=== PATIENT | female | born 1955 | race Caucasian/White ===

== ENCOUNTER → 2024-04-05 | Outpatient (CLI) | payer MEDICARE, MEDICAID ==
[~2024-04-05] MED LIST: PANT20TA18 PO
== END | disposition home or self-care (01) ==
LOC: RAD 11:46
PROVIDERS: ATTEND General Practice
DX: M51.17 Intervertebral disc disorders with radiculopathy, lumbosacral region (principal); M50.13 Cervical disc disorder with radiculopathy, cervicothoracic region; M25.50 Pain in unspecified joint
CPT/HCPCS: 72050; 72074; 72110